=== PATIENT | male | born 2000 | race Asian ===

== ENCOUNTER 2023-04-16 18:49 | Emergency (ER) | payer OTHER ==
[2023-04-16] MEDS ORDERED: Ketorolac Tromethamine 30 MG/ML VIAL ONE (20:12)
[2023-04-16] MEDS ORDERED: Cyclobenzaprine 10 MG TAB ONE (20:12)
== END 2023-04-16 21:08 | disposition home or self-care (01) ==
LOC: ERS 18:49
DX: S39.012A Strain of muscle, fascia and tendon of lower back, initial encounter (principal); X50.0XXA Overexertion from strenuous movement or load, initial encounter; Y93.53 Activity, golf
CPT/HCPCS: 71046; 96372; J1885